=== PATIENT | male | born 1935 | race Caucasian/White ===

== ENCOUNTER 2017-01-23 09:09 | Day surgery (SDC) | payer MEDICARE ==
[~2017-01-23 09:09] MED LIST: Acetaminophen TAB* 325 MG PO PRN; Buffered Lidocaine 1% SYRIN* 3 ML/SYR SYRINGE INTRADERM ONE
[2017-01-23] MEDS ORDERED: Midazolam* 1 MG/ML 5 ML VIAL (5 MG) ONE (10:58)
[2017-01-23] MEDS ORDERED: Midazolam* 1 MG/ML 2 ML VIAL (2 MG) ONE ×2 (11:55→12:18)
[2017-01-23] MEDS ORDERED: fentaNYL* 50 MCG/ML 2 ML VIAL (100 MCG VIAL) ONE (12:04)
[2017-01-23] MEDS ORDERED: acetaZOLAMIDE TAB* 250 MG ONE ×2 (12:46→14:05)
[2017-01-23 13:30] VITALS: BP 125/61
[2017-01-23] MEDS ORDERED: Flurbiprofen 0.03% OPTH.SOL* 2.5 ML BTL ONE (14:05)
[2017-01-23] MEDS ORDERED: Povidone Iodine 5% OPTH* 30 ML BTL ONE (14:05)
[2017-01-23] MEDS ORDERED: Lidocaine 2% EPI 1:200000 MPF* 20 ML VIAL ONE (14:05)
[2017-01-23] MEDS ORDERED: Proparacaine 0.5% OPHTH.SOL* 15 ML BTL ONE (14:05)
[2017-01-23] MEDS ORDERED: Neomycin/Polymy/Dex OPTH.SUSP* MAXITROL 0.1% 5 ML ONE (14:05)
[2017-01-23] MEDS ORDERED: Cyclopentolate 1% OPTH.SOL* 2 ML BTL ONE (14:05)
[2017-01-23] MEDS ORDERED: Lidocaine 1% MPF* 2 ML VIAL ONE (14:05)
[2017-01-23] MEDS ORDERED: Phenylephrine 2.5% OPTH.SOL* 2 ML BTL ONE (14:05)
[2017-01-23] MEDS ORDERED: BSS OPTH.SOL* BTL ONE (14:06)
[2017-01-23] MEDS ORDERED: Acetylcholine 1:100 OPTH* OPHTH.SOLN ONE (14:06)
[2017-01-23] MEDS ORDERED: Trypan Blue 0.06% SOL* 0.5 ML BTL ONE (15:38)
--- NOTE | 2017-01-24 02:57 | OP ---
DATE OF OPERATION: 01/23/17 - [place] [facility] DATE OF : 39 SURGEON: Moreno Guidry M.D. ANESTHESIA: Local with MAC. PREOPERATIVE DIAGNOSIS: Cataract, left eye. POSTOPERATIVE DIAGNOSIS: Cataract, left eye. OPERATIVE PROCEDURE: Phacoemulsification, left eye with IOL and CTR, left eye. COMPLICATIONS: None. DESCRIPTION OF PROCEDURE: The patient was prepped and draped in the usual sterile fashion. Topical 2% lidocaine with epinephrine was given. Lid speculum was placed. A paracentesis incision was made with 75-blade at the 4 o'clock position. Anterior chamber was irrigated with 1% non-preserved intracameral lidocaine and DisCoVisc and placed in the anterior chamber. During this maneuver, it was noticed that the most of the nasal zonules were absent and that the lens was somewhat highly mobile. Keratome was used to make a 2.2 mm clear corneal incision at the 3 o'clock position. Vision Blue to stain the anterior capsule. A cystotome was used to make a puja into the anterior capsule and then a capsulorrhexis was performed with the Utrata forceps. During this maneuver, it was noted high level of mobility of the lens and absent nasal lens zonules. Two more paracentesis incision were then made at the 10 o'clock and 8 o'clock position and iris retractors placed through the anterior capsular edge to stabilize the lens. The lens was removed with the sacral handpiece in a quick-chop technique as was the cortex removed with irrigation aspiration handpiece. The capsule was inspected and found to be fully intact; however, there was no zonule support nasally. An [id number] 22 diopter lens was placed into the capsular bag with a shooter and then a Morcher- type 6D capsular tension ring segment prepared by suturing a double armed 9-0 Prolene sutures through the eyelid. Then the iris retractor were removed and the conjunctival peritomy was performed at 9 o'clock, fornix based. A half- scleral thickness flap created between 2.5 and 3 mm posterior to the limbus with the crescent blade, then the capsular tension ring segment was placed intracapsularly with the eyelid above the capsule at the 9 o'clock position. This was then sutured transsclerally using the Prolene sutures at the 9 o'clock position under the scleral flap. Suture tension adjusted to keep the IOL centered. The scleral flap closed with 10-0 nylon sutures. The conjunctiva closed with 10-0 nylon sutures. The irrigation- aspiration handpiece was used to remove all residual DisCoVisc and replaced with balanced salt solution and topical Maxitrol was given. [id number]/[facility] #: [id number] MTDD
== END 2017-01-23 13:10 | disposition home or self-care (01) ==
LOC: OREAST 09:09
PROVIDERS: ATTEND Specialist
DX: H25.812 Combined forms of age-related cataract, left eye (principal); S04.012 Injury of optic nerve, left eye; Z86.711 Personal history of pulmonary embolism; Z79.01 Long term (current) use of anticoagulants; I26.99 Other pulmonary embolism without acute cor pulmonale; Z87.891 Personal history of nicotine dependence
CPT/HCPCS: A9270-GY; J2250; J3010; V2632

== ENCOUNTER 2018-06-16 14:24 | Emergency (ER) | payer MEDICARE, OTHER ==
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
[2018-06-16 15:02] LABS: ABS Basophils 0.1 10^3/ul (0-0.2); ABS Eosinophils 0 10^3/ul (0-0.6); ABS Lymphocytes 1.6 10^3/ul (1.0-4.8); ABS Monocytes 0.8 10^3/ul (0-0.8); ABS Nucleated RBC 0 10^3/ul; Eosinophil % 0.4 % (0-6); Hematocrit 42 % (42-52); Hemoglobin 14.1 g/dl (14.0-18.0); Lymphocyte % 21.6 % (25-47); Mean Corpuscular HGB Conc 34 g/dl (31-36); Mean Corpuscular Hemoglobin 31 pg (27-31); Mean Corpuscular Volume 91 fL (80-94); Mean Platelet Volume 7.6 um3 (7.4-10.4); Nucleated Red Blood Cells % 0; Platelet Count 221 10^3/ul (150-450); Red Blood Count 4.62 10^6/ul (4.00-5.40); Red Cell Distribution Width 14 % (10.5-15); White Blood Count 7.4 10^3/ul (3.5-10.8)
[2018-06-16 15:07] LABS: INR 1.52 (0.77-1.02)
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
[2018-06-16 17:03] VITALS: BP 129/67
== END 2018-06-16 17:01 | disposition home or self-care (01) ==
LOC: ED 14:24
DX: S00.91XA Abrasion of unspecified part of head, initial encounter (principal); S09.90XA Unspecified injury of head, initial encounter; V49.9XXA Car occupant (driver) (passenger) injured in unspecified traffic accident, initial encounter; Y92.410 Unspecified street and highway as the place of occurrence of the external cause; Z86.718 Personal history of other venous thrombosis and embolism
CPT/HCPCS: 36415; 70450; 72125; 80053; 85025; 85610; 99285